=== PATIENT | male | born 1985 | race Caucasian/White ===

== ENCOUNTER 2022-02-28 12:08 | Emergency (ER) | payer OTHER ==
[2022-02-28 12:22] VITALS: BP 151/105; PULSE 91; RESP 18; TEMP 99.8; BMI 31.6
[2022-02-28] MEDS ORDERED: ACETAMINOPHEN 325 MG TABLET (FP) PO ONE (12:24)
== END 2022-02-28 14:34 | disposition home or self-care (01) ==
LOC: FER 12:08
DX: S62.627A Displaced fracture of middle phalanx of left little finger, initial encounter for closed fracture (principal); W22.8XXA Striking against or struck by other objects, initial encounter
CPT/HCPCS: 73130-TC-LT-FY; 99283-25